=== PATIENT | female | born 1940 | race Caucasian/White ===

== ENCOUNTER 2018-04-03 06:45 | Inpatient (IN) | payer OTHER ==
[~2018-04-03] VITALS: Ht 162.6 cm; Wt 72.6 kg
[~2018-04-03 06:45] MED LIST: ALLEGRA ALLERGY60 MG PO; ASPIR 8181 MG PO; CALCIUM 500 +1 EAC5 PO; CO Q-10100 MG PO; FISH OIL 1,001000 M2 PO; GYNODIOL0.5 MG PO; HYDROCHLOROTH12.5 M1 PO; MAGOX 400400 MG PO; MIRALAX17 GM PO; PRAVACHOL20 MG PO; UNICOMPLEX M TA1 TA1 PO; VITAMINC500 PO; WELLBUTRIN 75 M75 M1 PO
[2018-04-03 06:46] VITALS: BP 198/98
[2018-04-03 07:34] LABS: MCHC 32.9 g/dL (28.0-37.0); PLATELET COUNT* 173 thou/uL (150-400)
[2018-04-03 07:36] LABS: ABSOLUTE BASOPHILS 0.1 thou/uL (0.0-0.2); ABSOLUTE EOSINOPHILS 0.2 thou/uL (0.0-0.7); ABSOLUTE LYMPHOCYTES 1.4 thou/uL (0.8-5.3); ABSOLUTE MONOCYTES 0.5 thou/uL (0.0-1.2); ABSOLUTE NEUTROPHILS 4.4 thou/uL (1.6-8.1); BASOPHILS 1.1 %; EOSINOPHILS 3.1 %; HEMATOCRIT 41.2 % (37.0-47.0); HEMOGLOBIN 13.5 gm/dL (12.0-15.0); LYMPHOCYTES 20.6 %; MCH 29.2 pg (26.0-34.0); MCV 88.8 fL (80.0-100.0); MPV 8.1 fl. (7.2-11.1); NUCLEATED RBCS 0 /100WBC; POLYS 67.2 %; RBC 4.63 mil/uL (4.20-5.00); WBC 6.6 thou/uL (4.0-11.0)
[2018-04-03 07:43] LABS: CALCIUM 8.2 mg/dL (8.5-10.1); CREATININE 0.7 mg/dL (0.6-1.3); POTASSIUM 3.1 mmol/L (3.5-5.1)
[2018-04-03 07:47] LABS: ALBUMIN 3.4 g/dL (3.4-5.0); TOTAL BILIRUBIN 0.3 mg/dL (<0.1-1.0)
--- NOTE | 2018-04-03 08:14 | NUR ---
ABDULKADIR NOTIFIED UPON PT RETURN FROM CT. PT CONNECTED TO MONITOR
[2018-04-03 08:34] LABS: URINE BILIRUBIN NEGATIVE (Negative); URINE BLOOD NEGATIVE (Negative); URINE CLARITY CLEAR; URINE COLOR YELLOW; URINE GLUCOSE-RANDOM NEGATIVE (Negative); URINE KETONES NEGATIVE (Negative); URINE LEUKOCYTES-REFLEX NEGATIVE (Negative); URINE NITRITE-REFLEX NEGATIVE (Negative); URINE PROTEIN NEGATIVE (Negative); URINE SPECIFIC GRAVITY 1.015 (1.005-1.030); URINE UROBILINOGEN 0.2 E.U./dl (0.2-1.0)
[2018-04-03 09:30] VITALS: BP 160/65
--- NOTE | 2018-04-03 10:30 | NUR ---
PT ARRIVED TO UNIT. PT CONTINUES TO REPORT DIZZINESS AND NAUSEA. PT ORIENTED TO ROOM,CALL LIGHT WITHIN REACH
[2018-04-03 10:41] VITALS: BP 181/84
[2018-04-03 12:00] VITALS: BP 166/62
--- NOTE | 2018-04-03 14:38 | NUR ---
RECEIVED CALL FROM MRI. UNABLE TO DO TEST PT IS VOMITING. DR ODOM NOTIFIED. ORDERS RECEIVED
[2018-04-03 16:00] VITALS: BP 171/71
--- NOTE | 2018-04-03 18:15 | NUR ---
PT RESTING IN BED THROUGHOUT SHIFT. PT CONTINUES TO REPORT DIZZINESS. UNABLE TO DO MRI D/T PT VOMITING. IVF INFUSING. PT NOT TOLERATING PO AT THIS TIME. PT UP TO BSC WITH ASSIST.
[2018-04-03 19:30] VITALS: BP 195/77
[2018-04-04] VITALS: BP 161/67
--- NOTE | 2018-04-04 02:11 | NUR ---
RECIEVED REPORT AND ASSUMED CARE AT 1900. PASTE THINNER IN PLACE. SYSTOLIC BP ELEVATED, OTHER THAN THAT VITAL SIGNS STABLE. PT UP WITH STAND BY ASSIST AND ON RA. PT IS DIZZY SHE STATES ALL THE TIME. PT STATED SHE HAD A HEADACHE BUT DID NOT WANT ANY MEDS AT THIS TIME. ASSESSMENT COMPLETED AND DISCUSSED PLAN OF CARE WITH PT AND SHE UNDERSTANDS. BED LOCKED AND CALL LIGHT WITHIN REACH. FALL PRECAUTIONS IN PLACE. HOURLY ROUNDING COMPLETED AND ALL NEEDS MET. NURSING WILL CONTINUE TO MONITOR.
[2018-04-04 04:00] VITALS: BP 167/50
[2018-04-04 04:58] LABS: MCH 28.6 pg (26.0-34.0); MCHC 32.4 g/dL (28.0-37.0); MCV 88.4 fL (80.0-100.0); MPV 8.3 fl. (7.2-11.1); RBC 4.52 mil/uL (4.20-5.00); RDW-CV 13.9 % (10.5-14.5); WBC 8.1 thou/uL (4.0-11.0)
[2018-04-04 05:09] LABS: CALCIUM 7.9 mg/dL (8.5-10.1); CREATININE 0.7 mg/dL (0.6-1.3); MAGNESIUM 1.9 mg/dL (1.8-2.4); POTASSIUM 3.5 mmol/L (3.5-5.1)
--- NOTE | 2018-04-04 11:36 | NUR ---
Pt is A&O. Resides at home and her son, granddtr and 2 y/o greatgrands live with her. Pt is active and independent. No DME. No hx of HH or SNF. Goal is home at dc. Pt states that she may be ready to dc tomorrow, no needs anticipated.
--- NOTE | 2018-04-04 11:42 | NUR ---
ASSUMED PT CARE AT 0700 PT IS ALERT AND ORIENTED X 4 PT DENIES PAIN OR SOA ON RA, PT IS UP SBA PT IS NOT A FALL RISK PT WILL CALL OUT FOR ASSISTANCE, PT IS SR ON THE MONITOR, PT IS PROGRESSING TOWARDS GOALS, PT WENT FOR MRI/MRA PT DENIES NAUSEA, WILL CONTINUE TO MONITOR
[2018-04-04 16:06] VITALS: BP 137/62
[2018-04-04 20:00] VITALS: BP 174/57
[2018-04-05 00:10] VITALS: BP 162/50
[2018-04-05 05:06] VITALS: BP 170/57
[2018-04-05 05:35] LABS: CALCIUM 8.4 mg/dL (8.5-10.1); CREATININE 0.7 mg/dL (0.6-1.3); POTASSIUM 3.6 mmol/L (3.5-5.1)
--- NOTE | 2018-04-05 06:28 | NUR ---
PATIENT PARTIALLY PROGRESSING TOWARDS GOALS: PATIENT HAD NO EPISODES OF NAUSEA/VOMITING OVERNIGHT, BUT DOES STILL C/O DIZZINESS. PATIENT HAS UNSTEADY GAIT AND USES FURNITURE TO TRANSFER FROM BED TO BATHROOM. STRONG STANDBY ASSIST USED WITH FALL PRECAUTIONS IN PLACE. PATIENT IS EAGER TO GO HOME. HOURLY ROUNDING OBSERVED. CALL LIGHT WITHIN REACH
--- NOTE | 2018-04-05 07:15 | NUR ---
ASSUMED CARE OF PT ASSESSED AND DOCUMENTED. PT ON CARDIAC MONITER TRACING SR HR 62. PT IS A&O WITH NO C/O PAIN. PT IS ON FALL PRECAUTIONS PER FACILITY PROTOCOL R/T DIZZYNESS. PT IS AFEBRILE AND ON ROOM AIR. BED IS IN LOW POSITION CALL LIGHT IS IN REACH. WM.
[2018-04-05 08:00] VITALS: BP 150/54
--- NOTE | 2018-04-05 11:44 | NUR ---
Per [facility], Pt qualifies for a rolling walker, faxed the order to [facility] [phone]. PT to deliver walker to Pt's room prior to dc.
[2018-04-05 12:00] VITALS: BP 168/54
[2018-04-05] MEDS ORDERED: CHLORTHALIDONE25 MG PO (13:25)
[2018-04-05] MEDS ORDERED: POTASSIUM20 PO (13:26)
[2018-04-05] MEDS ORDERED: TRANSDERM-SCOP1 EACH TRANSDERM (13:28)
[2018-04-05 13:44] VITALS: BP 168/54
--- NOTE | 2018-04-05 13:46 | NUR ---
WALLPAPERER SPOKE TO THE PATIENT TO DISCUSS DISCHARGE PLANNING NEEDS AND HH AT D/C. PATIENT CHOSE [facility]. WALLPAPERER CONTACTED [facility] TO INFORM OF REFERRAL AND FAXED PATIENT'S FACESHEET, H&P, AND D/C ORDERS. [facility] TO CONTACT THE PATIENT TO ARRANGE A TIME TO VISIT. CM WILL REMAIN AVAILABLE TO ASSIST AND FOLLOW NEEDED.
[2018-04-05 13:55] VITALS: BP 168/54
--- NOTE | 2018-04-05 15:40 | NUR ---
PT D/C'D TO HOME. ALL CONSULTS OK WITH D/C. EDUCATION GIVEN RE FOLLOW-UP, MEDICATIONS, AND DR APPTS. IV AND CARDIAC MONITER D/C'D. SCRIPT GIVEN. ALL BELONGINGS PACKED UP AND LEFT WITH PT ACCOMPANIED BY STAFF AND PTS ALISSON.
== END 2018-04-05 15:45 | disposition home health service (06) | DRG 149 ==
LOC: M.ERS 06:45 → M.2W 09:20 → M.TBA-ER 09:20 → M.2W 09:37
PROVIDERS: Emergency Medicine; ADMIT Family Medicine
DX: H81.90 Unspecified disorder of vestibular function, unspecified ear (principal); H83.09 Labyrinthitis, unspecified ear; E87.6 Hypokalemia; I10 Essential (primary) hypertension; E78.00 Pure hypercholesterolemia, unspecified; F32.9 Major depressive disorder, single episode, unspecified; Z90.710 Acquired absence of both cervix and uterus; Z98.49 Cataract extraction status, unspecified eye; Z88.0 Allergy status to penicillin; Z88.2 Allergy status to sulfonamides; Z88.6 Allergy status to analgesic agent; Z91.041 Radiographic dye allergy status; Z80.8 Family history of malignant neoplasm of other organs or systems; Z83.2 Family history of diseases of the blood and blood-forming organs and certain disorders involving the immune mechanism; Z79.82 Long term (current) use of aspirin; Z79.899 Other long term (current) drug therapy

== ENCOUNTER 2018-07-15 10:57 | Inpatient (IN) | payer OTHER ==
[~2018-07-15] VITALS: Ht 165.1 cm; Wt 55.3 kg
[~2018-07-15 10:57] MED LIST changes: +CHLORTHALIDONE25 MG PO; +POTASSIUM20 PO; +TRANSDERM-SCOP1 EACH TRANSDERM
[2018-07-15 11:21] VITALS: BP 104/43
[2018-07-15 11:41] LABS: INFLUENZA A ANTIGEN None Detected (None Detect)
[2018-07-15 12:51] LABS: URINE BILIRUBIN NEGATIVE (Negative); URINE BLOOD TRACE (Negative); URINE CLARITY CLEAR; URINE COLOR YELLOW; URINE GLUCOSE-RANDOM NEGATIVE (Negative); URINE KETONES TRACE (Negative); URINE LEUKOCYTES-REFLEX NEGATIVE (Negative); URINE NITRITE-REFLEX NEGATIVE (Negative); URINE PROTEIN NEGATIVE (Negative); URINE SPECIFIC GRAVITY 1.015 (1.005-1.030); URINE UROBILINOGEN 0.2 E.U./dl (0.2-1.0)
[2018-07-15 13:19] LABS: CALCIUM 8.6 mg/dL (8.5-10.1); CREATININE 1.6 mg/dL (0.6-1.3); POTASSIUM 3.1 mmol/L (3.5-5.1)
[2018-07-15 13:54] LABS: HEMOGLOBIN 13.7 gm/dL (12.0-15.0); MCH 29.3 pg (26.0-34.0); MCHC 34.3 g/dL (28.0-37.0); MCV 85.7 fL (80.0-100.0); MPV 8.1 fl. (7.2-11.1); NUCLEATED RBCS 0 /100WBC; PLATELET COUNT* 229 thou/uL (150-400); RBC 4.67 mil/uL (4.20-5.00); RDW-CV 14.9 % (10.5-14.5); WBC 8.9 thou/uL (4.0-11.0)
[2018-07-15 14:31] LABS: ABSOLUTE BASOPHILS 0.1 thou/uL (0.0-0.2); ABSOLUTE LYMPHOCYTES 0.5 thou/uL (0.8-5.3); ABSOLUTE MONOCYTES 0.6 thou/uL (0.0-1.2); ABSOLUTE NEUTROPHILS 7.7 thou/uL (1.6-8.1); PLATELET ESTIMATE ADEQUATE
[2018-07-15 15:37] VITALS: BP 129/58
[2018-07-15 16:52] VITALS: BP 148/51
--- NOTE | 2018-07-15 18:39 | NUR ---
PATIENT ADMITTED TO ROOM 318 VIA CART FROM ER THIS AFTERNOON. ADMISSION PROCESS COMPLETED. VITALS STABLE, AFEBRILE ON ADMIT. PATIENT ON RA. PATIENT'S IV FLUIDS INFUSING ORDERED. UP SBA. PATIENT GIVEN TYLENOL THIS EVENING PER REQUEST. PATIENT IN DROPLET ISOLATION FOR + FLU. ORIENTED TO ROOM, ENVIRONEMNT, AND CALL LIGHT UPON ADMISSION. HOURLY ROUNDING COMPLETED. CALL LIGHT WITHIN REACH. WILL CONTINUE WITH PLAN OF CARE.
[2018-07-15 21:00] VITALS: BP 143/44
[2018-07-16 04:40] LABS: CALCIUM 7.3 mg/dL (8.5-10.1); CREATININE 1.2 mg/dL (0.6-1.3)
[2018-07-16 04:41] LABS: ABSOLUTE EOSINOPHILS 0.1 thou/uL (0.0-0.7); ABSOLUTE MONOCYTES 0.6 thou/uL (0.0-1.2); ABSOLUTE NEUTROPHILS 5.8 thou/uL (1.6-8.1); BASOPHILS 0.6 %; EOSINOPHILS 1.2 %; HEMATOCRIT 36.8 % (37.0-47.0); HEMOGLOBIN 12.2 gm/dL (12.0-15.0); LYMPHOCYTES 13.5 %; MCH 28.7 pg (26.0-34.0); MCHC 33.1 g/dL (28.0-37.0); MCV 86.7 fL (80.0-100.0); MONOCYTES 7.7 %; MPV 8.4 fl. (7.2-11.1); NUCLEATED RBCS 0 /100WBC; PLATELET COUNT* 199 thou/uL (150-400); RBC 4.24 mil/uL (4.20-5.00); RDW-CV 14.8 % (10.5-14.5); WBC 7.5 thou/uL (4.0-11.0)
--- NOTE | 2018-07-16 06:17 | NUR ---
PATIENT SLEPT MOST OF THE NIGHT. IV FLUIDS CONTINUE TO INFUSE ORDERED. PATIENT HAD A TEMP OF 100.4 ABOUT 0300 TYLENOL WAS GIVEN. TEMP IS NOW 98.3. WILL CONTINUE TO MONITOR.
[2018-07-16 08:00] VITALS: BP 130/75
--- NOTE | 2018-07-16 16:30 | NUR ---
SW to follow to assist with safe dc planning. Pt lives at home with family. Pt has a RW. Pt has hx with [facility] HH services.
--- NOTE | 2018-07-16 19:50 | NUR ---
PATIENT HAS BEEN A/O X 4 THIS SHIFT. PATIENT WITH LOW GRADE TEMPS THIS SHIFT, TREATED WITH TYLENOL. PATIENT UP SBA TO BATHROOM. IV RESTARTED AND FLUIDS CONTINUE. POTASSIUM REPLACED PER ELECTROLYTE PROTOCOL. PATIENT STATES FEELS WEAK AND WITH GENERALIZED PAIN. PATIENT REMAINS IN DROPLET PRECAUTIONS FOR + FLU, TAMIFLU CONTINUES. HOURLY ROUNDING COMPLETED. CALL LIGHT WITHIN REACH. WILL CONTINUE WITH PLAN OF CARE.
[2018-07-17 04:09] VITALS: BP 151/67
--- NOTE | 2018-07-17 06:45 | NUR ---
PATIENT SLEPT WELL DURING THIS SHIFT. PT ON ROOM AIR. PT UP TO BATHROOM WITH STANDBY ASSIST. PT VOIDS YELLOW URINE. PT C/O GENERALIZED PAIN X1 AT HS AND GIVEN TYLENOL 2 TABS. PT WITH TEMP OF 100.8 THIS AM AND GIVEN TWO TYLENOL. PT WITH FLUIDS INFUSING PER DR ORDER. PT REMAINS IN DROPLET ISOLATION. WILL CONTINUE TO MONITOR.
[2018-07-17 08:00] VITALS: BP 141/69
--- NOTE | 2018-07-17 10:13 | NUR ---
PATIENT INSTRUCTED ON HOW TO USE INCENTIVE SPIROMETRY. PATIENT REQUESTED TO HAVE IV FLUIDS TURNED OFF AT THIS TIME DUE TO SLIGHT WHEEZING. PATIENT STATES STILL FEELS WEAK AND TIRED. CALL LIGHT WITHIN REACH. WILL CONTINUE WITH PLAN OF CARE.
[2018-07-17 10:44] LABS: CALCIUM 8.1 mg/dL (8.5-10.1); CREATININE 0.8 mg/dL (0.6-1.3); POTASSIUM 3.3 mmol/L (3.5-5.1)
[2018-07-17 13:34] VITALS: BP 144/53
--- NOTE | 2018-07-17 13:34 | NUR ---
PATIENT CALLED OUT STATING SHE HAD TROUBLE BREATHING. PATIENT HYPERVENTILATING WHEN ENTERING ROOM. VITALS OBTAINED AND PLACED ON O2 AT 2L/NC. O2 SAT 97% ON 2L/NC AND PATIENT LESS ANXIOUS. DR ODOM PAGED TO UPDATE ON PATIENT.
--- NOTE | 2018-07-17 14:24 | NUR ---
SPOKE TO DR ODOM REGARDING PATIENT REFUSING IV FLUIDS. PATIENT TO START ON RT TREATMENTS AND HAVE REPEAT CXR IN AM. WILL CONTINUE WITH PLAN OF CARE.
[2018-07-17 16:15] VITALS: BP 124/49
--- NOTE | 2018-07-17 19:30 | NUR ---
PATIENT HAS BEEN A/O X 4 THIS SHIFT. MEDICATED THROUGHOUT THE SHIFT WITH TYLENOL FOR LOW GRADE TEMPS. UP SBA TO BATHROOM. REFUSING IVF, DR ODOM AWARE. PATIENT SHOWERED TODAY AND FELT SLIGHTLY BETTER AFTER SHOWER. APPETITE POOR, ENCOURAGED SUPPLEMENTS, DID EAT BETTER FOR DINNER. PLACED ON O2 AT 2L/NC FOR FEELING SHORT OF AIR AND STARTED ON RT TREATMENTS. INCENTIVE SPIROMETER GIVEN TO PATIENT AND EDUCATED ON HOW TO USE. UPDATED PATIENT AND FAMILY ON PLAN OF CARE. TO HAVE PCXR IN AM. REMAINS IN DROPLET PRECAUTIONS. HOURLY ROUNDING COMPLETED. CALL LIGHT WITHIN REACH. WILL CONTINUE WITH PLAN OF CARE.
[2018-07-17 20:10] VITALS: BP 125/47
--- NOTE | 2018-07-18 05:49 | NUR ---
PT SLEPT MOST OF SHIFT. ASSESSMENT DOCUMENTED. MEDS GIVEN PER E-JUN. IV PATENT. NO REPORTS OF PAIN THIS SHIFT. ISOLATION MAINTAINED. WILL CONTINUE WITH PLAN OF CARE.
[2018-07-18 11:06] VITALS: BP 107/78
[2018-07-18 16:48] VITALS: BP 131/47
--- NOTE | 2018-07-18 17:52 | NUR ---
PATIENT IS ALERT AND ORIENTED TODAY VERY PLEASANT. UP AD NIKOLAY IN ROOM WAERS 2 LITERS OF OXYGEN THROUGH NASAL CANNULA. VITAL SIGNS STABLE. NO FEVER TODAY. NO COMPLAINTS OF PAIN TODAY. REFUSING IV FLUIDS AND DOES NOT WANT TO TAKE ANY MORE POTASSIUM. CALL LIGHT IS IN REACH, WILL CONTINUE TO MONITOR,
[2018-07-18 20:00] VITALS: BP 147/57
[2018-07-19 03:57] LABS: ABSOLUTE EOSINOPHILS 0.1 thou/uL (0.0-0.7); ABSOLUTE MONOCYTES 0.5 thou/uL (0.0-1.2); ABSOLUTE NEUTROPHILS 6.7 thou/uL (1.6-8.1); BASOPHILS 0.5 %; EOSINOPHILS 1.2 %; HEMATOCRIT 32.9 % (37.0-47.0); HEMOGLOBIN 11.2 gm/dL (12.0-15.0); LYMPHOCYTES 11.8 %; MCH 29.6 pg (26.0-34.0); MCHC 34.2 g/dL (28.0-37.0); MCV 86.5 fL (80.0-100.0); MONOCYTES 5.8 %; MPV 8.1 fl. (7.2-11.1); NUCLEATED RBCS 0 /100WBC; POLYS 80.7 %; RDW-CV 14.8 % (10.5-14.5); WBC 8.3 thou/uL (4.0-11.0)
[2018-07-19 04:09] LABS: CALCIUM 8.3 mg/dL (8.5-10.1); CREATININE 0.9 mg/dL (0.6-1.3); POTASSIUM 4.6 mmol/L (3.5-5.1)
[2018-07-19 04:12] LABS: PLATELET COUNT* 277 thou/uL (150-400)
--- NOTE | 2018-07-19 06:00 | NUR ---
PT SLEPT MOST OF SHIFT. ASSESSMENT DOCUMENTED. MEDS GIVEN PER E-JUN. IV PATENT. NO REPORTS OF PAIN THIS SHIFT. O2 ON FOR PATIENT COMFORT. WILL CONTINUE WITH PLAN OF CARE.
[2018-07-19 08:00] VITALS: BP 130/56
[2018-07-19] MEDS ORDERED: KLOR-CON M2020 MEQ PO (14:45)
[2018-07-19] MEDS ORDERED: AZITHROMYCIN 2250 MG PO (14:48)
[2018-07-19] MEDS ORDERED: CEFDINIR300 MG PO (14:48)
[2018-07-19 15:13] VITALS: BP 130/56
--- NOTE | 2018-07-19 15:45 | NUR ---
DISCHARGE NOTE - REVIEWED INSTRUCTIONS WITH PT. NO QUESTIONS. IV REMOVED. ALL BELONGINGS SENT WITH PT.
== END 2018-07-19 15:45 | disposition home or self-care (01) | DRG 682 ==
LOC: M.ERS 10:57 → M.TBA-ER 13:47 → M.3W 13:47
PROVIDERS: Emergency Medicine Emergency Medical Services; Family Medicine; ADMIT Internal Medicine
DX: N17.0 Acute kidney failure with tubular necrosis (principal); R65.11 Systemic inflammatory response syndrome (SIRS) of non-infectious origin with acute organ dysfunction; J11.1 Influenza due to unidentified influenza virus with other respiratory manifestations; E86.0 Dehydration; N18.2 Chronic kidney disease, stage 2 (mild); I12.9 Hypertensive chronic kidney disease with stage 1 through stage 4 chronic kidney disease, or unspecified chronic kidney disease; E87.6 Hypokalemia; F32.9 Major depressive disorder, single episode, unspecified; T50.2X5A Adverse effect of carbonic-anhydrase inhibitors, benzothiadiazides and other diuretics, initial encounter; Y92.89 Other specified places as the place of occurrence of the external cause; Z90.710 Acquired absence of both cervix and uterus; Z79.82 Long term (current) use of aspirin; Z79.899 Other long term (current) drug therapy; Z88.5 Allergy status to narcotic agent; Z88.0 Allergy status to penicillin; Z88.2 Allergy status to sulfonamides; Z91.041 Radiographic dye allergy status; Z83.2 Family history of diseases of the blood and blood-forming organs and certain disorders involving the immune mechanism; Z80.8 Family history of malignant neoplasm of other organs or systems

== ENCOUNTER → 2019-09-30 | Outpatient (CLI) | payer MEDICARE, OTHER ==
[~2019-09-30] MED LIST changes: +AZITHROMYCIN 2250 MG PO; +CEFDINIR300 MG PO; +KLOR-CON M2020 MEQ PO
== END ==
LOC: M.MRI 11:00
PROVIDERS: ATTEND Psychiatry & Neurology Neuromuscular Medicine
DX: G31.89 Other specified degenerative diseases of nervous system (principal); I67.82 Cerebral ischemia

== ENCOUNTER 2020-01-27 18:06 | Emergency (ER) | payer MEDICARE, OTHER ==
[~2020-01-27] VITALS: Ht 162.6 cm; Wt 72.6 kg
[2020-01-27] MEDS ORDERED: HYDROCHLOROTHIA25 M2 PO (18:25)
[2020-01-27 18:54] LABS: ABSOLUTE LYMPHOCYTES 0.9 thou/uL (0.8-5.3); ABSOLUTE MONOCYTES 0.8 thou/uL (0.0-1.2); ABSOLUTE NEUTROPHILS 9.4 thou/uL (1.6-8.1); BASOPHILS 0.4 %; HEMATOCRIT 41.4 % (37.0-47.0); LYMPHOCYTES 7.7 %; MCH 29.6 pg (26.0-34.0); MCHC 33.8 g/dL (28.0-37.0); MCV 87.6 fL (80.0-100.0); MONOCYTES 7.5 %; MPV 7.4 fl. (7.2-11.1); NUCLEATED RBCS 0 /100WBC; PLATELET COUNT* 274 thou/uL (150-400); POLYS 84.4 %; RBC 4.73 mil/uL (4.20-5.00); RDW-CV 13.5 % (10.5-14.5); WBC 11.1 thou/uL (4.0-11.0)
[2020-01-27 19:02] LABS: APTT 27.5 Seconds (25.0-31.3); PROTIME 10.3 Seconds (9.20-11.50)
[2020-01-27 19:10] LABS: ALBUMIN 3.6 g/dL (3.4-5.0); CALCIUM 8.1 mg/dL (8.5-10.1); CREATININE 0.9 mg/dL (0.6-1.3); POTASSIUM 3.8 mmol/L (3.5-5.1); TOTAL BILIRUBIN 0.5 mg/dL (<0.1-1.0); TOTAL PROTEIN 6.8 g/dL (6.4-8.2)
[2020-01-27] MEDS ORDERED: NORCO 5-325 TA1 EAC2 PO (20:07)
[2020-01-27] MEDS ORDERED: ZOFRAN ODT4 MG SUBLING (20:07)
[2020-01-27 20:42] VITALS: BP 139/76
--- NOTE | 2020-01-28 10:17 | EKG ---
[place] [address] ELECTROCARDIOGRAM REPORT Name: JOHN ASTORGA Room: [facility]#: [id number] Admission: 01/27/20 Attend Phys: Discharge: 01/27/20 Date of : 44 Date of Service: 01/27/201912 Report #: [id number] THIS REPORT FOR: //name// [facility] ED Test Date: 2020-01-27 Test Time: 19:13:44 Pat Name: JOHN ASTORGA Department: Room: Gender: [employer]: : [id number] Requested By: Sara Hendricks Order Number: [id number] MD: Darrian Betancourt Measurements Intervals Schneider Rate: 66 P: 70 MN: 144 QRS: 58 QRSD: 97 T: 46 QT: 450 QTc: 472 Interpretive Statements Sinus rhythm Left ventricular hypertrophy with repolarization changes Baseline wander in lead(s) V4 Compared to ECG 05/05/2015 12:16:46 no change Electronically Signed On 01-28-2020 10:16:44 CDT by Darrian Betancourt [email or web address] <ELECTRONICALLY SIGNED> By: Darrian Betancourt MD, FACC 01/28/20 1016 12 12 Darrian Betancourt MD, FAC /EPI
== END 2020-01-27 20:43 | disposition home or self-care (01) ==
LOC: M.ERS 18:06
PROVIDERS: Personal Emergency Response Attendant
DX: M54.9 Dorsalgia, unspecified (principal); R11.0 Nausea; R79.1 Abnormal coagulation profile; Z79.899 Other long term (current) drug therapy; Z88.6 Allergy status to analgesic agent; Z88.2 Allergy status to sulfonamides; Z88.0 Allergy status to penicillin; Z90.710 Acquired absence of both cervix and uterus

== ENCOUNTER 2020-10-03 10:01 | Emergency (ER) | payer MEDICARE, OTHER ==
[~2020-10-03] VITALS: Ht 165.1 cm; Wt 72.6 kg
[~2020-10-03 10:01] MED LIST changes: +HYDROCHLOROTHIA25 M2 PO; +NORCO 5-325 TA1 EAC2 PO; +ZOFRAN ODT4 MG SUBLING
[2020-10-03] MEDS ORDERED: MEDROLDOSEPACK PO (11:00)
[2020-10-03] MEDS ORDERED: HYDROCODON-ACE1 EAC7 PO ×2 (11:01→11:02)
[2020-10-03 11:27] VITALS: BP 193/63
== END 2020-10-03 11:29 | disposition home or self-care (01) ==
LOC: M.ERS 10:01
DX: M54.5 Low back pain (principal); Z88.5 Allergy status to narcotic agent; Z88.2 Allergy status to sulfonamides; Z88.0 Allergy status to penicillin; Z91.041 Radiographic dye allergy status; Z90.710 Acquired absence of both cervix and uterus

== ENCOUNTER → 2020-11-01 | Outpatient (CLI) | payer MEDICARE, OTHER ==
[~2020-11-01] MED LIST changes: +HYDROCODON-ACE1 EAC7 PO; +MEDROLDOSEPACK PO; +TIZANIDINE HCL4 M1 PO; +TRAMADOL 50 MG50 MG PO
== END ==
LOC: M.PC 09:37
PROVIDERS: ATTEND Physical Medicine & Rehabilitation
DX: M51.16 Intervertebral disc disorders with radiculopathy, lumbar region (principal); M47.26 Other spondylosis with radiculopathy, lumbar region; Z88.2 Allergy status to sulfonamides; Z88.0 Allergy status to penicillin; Z88.8 Allergy status to other drugs, medicaments and biological substances; Z79.899 Other long term (current) drug therapy; Z79.891 Long term (current) use of opiate analgesic

== ENCOUNTER → 2020-11-08 | Outpatient (CLI) | payer MEDICARE, OTHER | LOC: M.MRI 07:36 | PROVIDERS: ATTEND Physical Medicine & Rehabilitation | DX: M48.061 Spinal stenosis, lumbar region without neurogenic claudication (principal); M54.5 Low back pain; M54.16 Radiculopathy, lumbar region ==

== ENCOUNTER → 2020-11-22 | Outpatient (CLI) | payer MEDICARE, OTHER | END | disposition home or self-care (01) | LOC: M.PC 08:32 | PROVIDERS: ATTEND Physical Medicine & Rehabilitation | DX: M54.5 Low back pain (principal); M51.16 Intervertebral disc disorders with radiculopathy, lumbar region; M47.26 Other spondylosis with radiculopathy, lumbar region; M79.605 Pain in left leg; Z98.890 Other specified postprocedural states; Z79.899 Other long term (current) drug therapy; Z88.8 Allergy status to other drugs, medicaments and biological substances; Z88.2 Allergy status to sulfonamides; Z91.041 Radiographic dye allergy status; Z88.6 Allergy status to analgesic agent ==

== ENCOUNTER → 2020-12-06 | Outpatient (CLI) | payer MEDICARE, OTHER | LOC: M.PC 09:10 | PROVIDERS: ATTEND Physical Medicine & Rehabilitation | DX: I70.0 Atherosclerosis of aorta (principal); M84.454A Pathological fracture, pelvis, initial encounter for fracture; M16.0 Bilateral primary osteoarthritis of hip; M47.816 Spondylosis without myelopathy or radiculopathy, lumbar region; M51.16 Intervertebral disc disorders with radiculopathy, lumbar region; M47.26 Other spondylosis with radiculopathy, lumbar region; M79.605 Pain in left leg ==